=== PATIENT | female | born 1990 | race Caucasian/White ===

== ENCOUNTER 2025-05-15 14:49 | Observation (INO) ==
--- NOTE | 2025-05-15 15:43 | Emergency Department Note ---
Impression & Plan Chest pain, Elevated troponin, Intractable migraine ED Provider Note CHIEF COMPLAINT: Neck pain, migraine HISTORY OF PRESENTING ILLNESS: The patient is a pleasant 34-year-old female who arrives to the emergency department for evaluation of persistent migraine headache, with left-sided neck pain. Patient has had photophobia as well as phonophobia. She states past medical history of severe concussions, persistent migraines. States she is having severe neck stiffness, difficulty performing range of motion. She notes she has had no relief of her symptoms in the last 4 days, with [id number] Tylenol. She also states she has been having some left upper anterior chest pain, with some shortness of breath on exertion. She reports no previous cardiac history. REVIEW OF SYSTEMS: See HPI for pertinent positives and pertinent negatives. ALLERGIES: See below MEDICATIONS: See below PAST MEDICAL HISTORY: See below PHYSICAL EXAM: VITALS: Vitals are noted on the nurse's note and reviewed by myself. Vital signs stable. GENERAL: 34-year-old female, in no acute distress, nondiaphoretic, well- developed well-nourished. SKIN: The skin was without rashes, erythema, edema, or bruising. HEAD: Normocephalic atraumatic. EARS: External auditory canals clear, tympanic membranes pearly leslie without erythema or effusion bilaterally. EYES: Pupils equal round and reactive to light and accommodation. Conjunctivae without injection, sclerae without icterus. Extraocular movements intact. No nystagmus present. NOSE: Patent, turbinates without inflammation or discharge. No sinus tenderness. MOUTH: Mucous membranes moist. Tonsils are not enlarged. Pharynx without erythema or exudate. Uvula midline. Airway patent. Tongue does not deviate. NECK: Supple without nuchal rigidity. Cervical spine is nontender, no lymphadenopathy. Left cervical paraspinous region, tender to palpation, palpable spasm present. Negative Kernig's and Brudzinski's. HEART: Tachycardia with regular rhythm without murmurs gallops or rubs. LUNGS: Clear to auscultation bilaterally without wheezes, rales or rhonchi. No retractions or accessory muscle use. ABDOMEN: Positive bowel sounds x 4. Soft, nontender, without masses or organomegaly. Fitzpatrick sign negative. No guarding or rebound tenderness. MUSCULOSKELETAL: No muscle atrophy, erythema, or edema noted. Normal gait. Strength 5/5 throughout. NEURO: Patient was alert and oriented to person place and time. No focal neurological deficits. DIFFERENTIAL DIAGNOSIS: Migraine headache, meningitis, sinusitis, CO exposure, ICH, SAH, infection, tumor, headache, sinus thrombosis, arterial dissection, as well as other pathologies. ED COURSE AND MEDICAL DECISION MAKING: HISTORY FROM INDEPENDENT HISTORIAN: Mother at bedside serving as secondary historian. MEDICATIONS GIVEN: Compazine, 5 mg, ketorolac 15 mg, NSS bolus, 1 L, dexamethasone 10 mg IV, diphenhydramine 25 mg IV, topical Lidoderm, diazepam 1 mg IV, methocarbamol 500 mg p.o. MONITOR: Continuous deputy attorney general: Order was placed for continuous deputy attorney general. Patient was placed on the deputy attorney general and continuous pulse ox. Patient was noted to be in normal sinus rhythm at an initial rate of 139 bpm per my interpretation. EKG: EKG was interpreted by myself as sinus tachycardia at a rate of 121 bpm, no ST elevation or depression. No previous for comparison.. INTERPRETATION OF LABS: I interpreted the labs with full lab results as below in the lab section of this note. Pertinent lab results discussed in the MDM section below. INTERPRETATION OF IMAGING: Imaging studies were interpreted by myself and read by radiology as per the imaging section of this note. MDM SUMMARY: The patient is a pleasant, 34-year-old female who arrives to the emergency department for evaluation of the above-stated complaint. A saline lock was established, cardiac workup was obtained, as well as D-dimer, ESR, and CRP. Lab work shows no leukocytosis, no anemia. CMP shows elevated AST, ALT, likely due to patient's Tylenol intake. ESR 58, CRP 13.35. Troponin 25.5, with repeat at 2 hours 27.8. D-dimer 1110. Patient was provided migraine cocktail, with minimal improvement in symptoms. CT imaging of the head, as well as CT angio of the head and neck with CT angio of the chest to rule out PE was obtained. Imaging shows per my interpretation no acute intracranial abnormality, vascular studies are negative, PE study negative as well. Chest x- ray imaging shows no acute cardiopulmonary process per my interpretation. The patient will require further workup, and imaging due to abnormal lab values, as well as persistent migraine, with no significant improvement in symptoms with migraine cocktail. I spoke with Dr. Rios from the hospitalist group, who agreed to evaluate and admit the patient under his care. Please refer to his documentation for further patient workup and treatment. DIAGNOSIS: Chest pain, elevated troponin, intractable migraine The chart was completed utilizing [employer] Speech voice recognition software. Grammatical errors, random word insertions, pronoun errors, and incomplete sentences are an occasional consequence of this system due to software limitations, ambient noise, and hardware issues. Any formal questions or concerns about the content, text, or information contained within the body of this dictation should be directly addressed to the provider for clarification. 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 Esophageal reflux (05/01/13) Neck pain History of concussion Medical History Chronic rhinitis (05/01/13) Appendicitis Dysthymia Concussion Surgical History H/O toe surgery S/P appendectomy Family History Other Family history non-contributory Social History Smoking Status: Never smoker Second Hand Exposure: No; Do You Dip or Chew Tobacco: No; Hx Alcohol Use: No Hx Substance Use: No Preferred Language: Mongolian Communication Ability: Effective Swimming Pool Service Technician Required: No Beliefs That Will Affect Care: None Current Living Situation: Parent Feels Safe at Home: Yes Assistive Devices: Glasses Allergies Allergies Allergy/AdvReac Type Severity Reaction Status Date / Time Penicillins Allergy Mild Unknown Verified 04/07/25 08:50 Sulfa (Sulfonamide Allergy Unknown Hives Verified 04/07/25 08:50 Antibiotics) atogepant [From Qulipta] AdvReac Intermediate Verified 04/07/25 08:50 metoprolol AdvReac side Verified 04/07/25 08:50 effects Home Meds Home Medications Medication Instructions Recorded Confirmed magnesium 250 mg tablet 250 mg PO DAILY 04/07/25 04/07/25 Previous Rx's Medication Instructions Recorded riboflavin (vitamin B2) 400 mg 400 mg PO DAILY #30 tabs 02/26/22 tablet Nerivio Digital Alvaro (migraine) #1 ea 04/14/24 (digital therapeutic,NAHID device) rimegepant 75 mg disintegrating 75 mg PO Q OTHER DAY migraine 11/29/24 tablet (Nurtec ODT) headache #16 tabs rizatriptan 10 mg tablet See Rx Instructions PO .COMPLEX #9 11/29/24 tabs L norgest/E estradiol-E estrad See Rx Instructions PO .COMPLEX 03/24/25 0.15 mg-30 mcg (84)/10 mcg(7) #182 ea tabs,3mos venlafaxine 37.5 mg 37.5 mg PO DAILY #30 caps 04/07/25 capsule,extended release 24 hr diclofenac sodium 75 mg 75 mg PO BID PRN pain #20 tabs 05/16/25 tablet,delayed release methocarbamol 500 mg tablet 500 mg PO TID PRN muscle 05/16/25 spasticity #20 tabs Results & Data (ED) Vital Signs Vital Signs - 24 hr 05/15/25 14:52 05/15/25 15:11 05/15/25 17:00 Temperature 36.6 C Temperature Source Temporal Artery Scan Pulse Rate 139 H Pulse Rate [Left Finger] 116 H 102 H Pulse Rhythm [Left Finger] Respiratory Rate 18 20 20 Respiratory Effort / Characteristics Non-Labored Spontaneous Respiratory Depth Normal Respiratory Pattern Regular Blood Pressure 132/77 Blood Pressure [Left Arm] 126/75 110/82 Blood Pressure Mean 95 Blood Pressure Mean [Left Arm] 92 91 Blood Pressure Position [Left Arm] Pulse Oximetry 99 99 99 Oxygen Delivery Method Room Air Sepsis Recent Fever Within 48 Hours No Sepsis New/Unexplained Change in Mental Status N/A Sepsis Action Taken by Nursing No Action Required 05/15/25 17:40 05/15/25 18:30 05/15/25 20:00 Temperature Temperature Source Pulse Rate 104 H Pulse Rate [Left Finger] 108 H 99 H Pulse Rhythm [Left Finger] Regular Respiratory Rate 14 18 Respiratory Effort / Characteristics Respiratory Depth Respiratory Pattern Blood Pressure Blood Pressure [Left Arm] 111/77 118/83 Blood Pressure Mean Blood Pressure Mean [Left Arm] 88 94 Blood Pressure Position [Left Arm] Sitting Pulse Oximetry 98 99 Oxygen Delivery Method Room Air Sepsis Recent Fever Within 48 Hours Sepsis New/Unexplained Change in Mental Status Sepsis Action Taken by Nursing 05/15/25 21:27 05/15/25 21:47 Temperature Temperature Source Pulse Rate 99 H Pulse Rate [Left Finger] 105 H Pulse Rhythm [Left Finger] Respiratory Rate 16 Respiratory Effort / Characteristics Respiratory Depth Normal Respiratory Pattern Blood Pressure Blood Pressure [Left Arm] 111/75 Blood Pressure Mean Blood Pressure Mean [Left Arm] 87 Blood Pressure Position [Left Arm] Pulse Oximetry 97 Oxygen Delivery Method Room Air Sepsis Recent Fever Within 48 Hours Sepsis New/Unexplained Change in Mental Status Sepsis Action Taken by Half-Way Medications Current Medication List: was personally reviewed by me Laboratory Data Attestation: I reviewed the patient's lab results. 05/16/25 05:30 05/15/25 16:03 Lab Results 05/15/25 05/15/25 05/15/25 Range/Units 16:03 16:22 18:26 WBC 9.39 (4.8-10.8) K/ul RBC 4.96 (4.20-5.40) M/uL Hgb 14.3 (12.0-16.0) g/dl Hct 42.3 (37.0-47.0) % MCV 85.3 (80.0-100.0) fL MCH 28.8 (25.0-34.0) pg MCHC 33.8 (32.0-36.0) g/dL RDW Std Deviation 40.8 (36.4-46.3) fL RDW Coeff of [place] 13.1 (11.5-14.5) % Plt Count 252 (130-400) K/uL MPV 10.0 (9.4-12.4) fL Immature Gran % (Auto) 0.2 % Neut % (Auto) 76.5 % Lymph % (Auto) 11.0 % [place] % (Auto) 6.9 % Eos % (Auto) 4.8 % Baso % (Auto) 0.6 % Neut # (Auto) 7.18 H (1.40-6.50) K/uL Lymph # (Auto) 1.03 L (1.20-3.40) K/uL [place] # (Auto) 0.65 H (0.11-0.59) K/uL Eos # (Auto) 0.45 (0.00-0.50) K/uL Baso # (Auto) 0.06 (0.00-0.20) K/uL Immature Gran # (Auto) 0.02 (0.01-0.20) K/uL D-Dimer Cancelled 1110 H* Sodium 134 L (136-145) mmol/L Potassium 3.6 (3.5-5.1) mmol/L Chloride 101 (98-107) mmol/L Carbon Dioxide 25 (21-32) mmol/L Anion Gap 8 (3-11) BUN 6 (6-23) mg/dl Creatinine 0.99 (0.6-1.2) mg/dl Est Cr Clr Drug Dosing 77.1 ml/min eGFR 77.21 BUN/Creatinine Ratio 6.1 L (10-20) Glucose 102 H (70-99(Fasting)) mg/dl Calcium 9.2 (8.6-10.3) mg/dl Total Bilirubin 0.7 (0.2-1.0) mg/dl AST 49 H (13-39) U/L ALT 61 H (7-52) U/L Alkaline Phosphatase 75 (34-104) U/L Troponin I High Sens 25.5 H 27.8 H (0-14) pg/ml C-Reactive Protein 13.35 H (0-0.5) mg/dl Total Protein 8.2 (6.0-8.3) gm/dl Albumin 4.0 (3.4-5.0) gm/dl Globulin 4.2 H (2.5-4.0) gm/dl Albumin/Globulin Ratio 1.0 (0.9-2) Ref Lab Test Result See Scanned Report Administered Medications Discontinued Medications Acetaminophen (Acetaminophen 500 Mg Tab) 1,000 mg PO NOW STA Stop: 05/15/25 15:50 Last Admin: 05/15/25 16:44 Dose: 1,000 mg Documented By: POLINA Acetaminophen (Acetaminophen 500 Mg Tab) 1,000 mg PO Q8 PRN PRN Reason: pain/fever Stop: 06/14/25 23:35 Last Admin: 05/16/25 11:05 Dose: 1,000 mg Documented By: VGS Dexamethasone Sodium Phosphate (DexamethasonePf 10 Mg/Ml Vial) 10 mg IV NOW ONE Stop: 05/15/25 15:47 Last Admin: 05/15/25 16:38 Dose: 10 mg Documented By: POLINA Diazepam (Diazepam 5 Mg/Ml 10ml Vial) 1 mg IV NOW STA Stop: 05/15/25 15:59 Last Admin: 05/15/25 16:37 Dose: 1 mg Documented By: POLINA Diphenhydramine HCl (Diphenhydramine 50 Mg/Ml Vial) 25 mg IV NOW STA Stop: 05/15/25 15:47 Last Admin: 05/15/25 16:41 Dose: 25 mg Documented By: POLINA Gadobutrol (Gadobutrol 7.5ml Vial) 6 ml IV ONCE ONE Stop: 05/15/25 23:26 Last Admin: 05/15/25 23:25 Dose: 6 ml Documented By: RAND Prochlorperazine (Compazine) 1 mls @ 1 mls/min IV ONE ONE Stop: 05/15/25 15:47 Last Admin: 05/15/25 16:39 Dose: 1 mls/min Documented By: POLINA Sodium Chloride (Nss) 1,000 mls @ 999 mls/hr IV .Q1H1M ONE Stop: 05/15/25 16:46 Last Infusion: 05/15/25 17:45 Dose: Infused Documented By: Admin: 05/15/25 16:44 Dose: 999 mls/hr Documented By: POLINA Sodium Chloride (Nss) 1,000 mls @ 999 mls/hr IV .Q1H1M ONE Stop: 05/15/25 21:08 Last Infusion: 05/15/25 21:38 Dose: Infused Documented By: Admin: 05/15/25 20:33 Dose: 999 mls/hr Documented By: DEV Dexamethasone 10 mg/ Syringe 2.5 mls @ 1 mls/min IV Q6H GEMA Stop: 06/15/25 00:00 Last Admin: 05/16/25 12:21 Dose: 1 mls/min Documented By: Admin: 05/16/25 05:46 Dose: 1 mls/min Documented By: Admin: 05/16/25 00:30 Dose: 1 mls/min Documented By: LEON Vancomycin HCl 1,500 mg/ (Sodium Chloride) 530 mls @ 200 mls/hr IV ONE ONE Stop: 05/16/25 02:53 Last Infusion: 05/16/25 03:11 Dose: Infused Documented By: Admin: 05/16/25 00:30 Dose: 200 mls/hr Documented By: LEON Vancomycin HCl (Vancomycin Hcl) 1,000 mg in 270 mls @ 200 mls/hr IV Q12H GEMA Stop: 05/26/25 07:59 Last Infusion: 05/16/25 09:40 Dose: Infused Documented By: Admin: 05/16/25 08:19 Dose: 200 mls/hr Documented By: ANTONINO Ioversol (Optiray 320 125ml) 112 ml IV ONCE ONE Stop: 05/15/25 18:54 Last Admin: 05/15/25 18:53 Dose: 112 ml Documented By: BASSEM Ketorolac Tromethamine (Ketorolac Tromethamine 15 Mg/Ml Vial) 15 mg IV NOW ONE Stop: 05/15/25 15:47 Last Admin: 05/15/25 16:40 Dose: 15 mg Documented By: POLINA Ketorolac Tromethamine (Ketorolac Tromethamine 15 Mg/Ml Vial) 15 mg IV Q6H PRN PRN Reason: Headache Stop: 05/20/25 21:15 Last Admin: 05/16/25 17:39 Dose: 15 mg Documented By: Admin: 05/16/25 08:27 Dose: 15 mg Documented By: Admin: 05/15/25 23:49 Dose: 15 mg Documented By: LEON Lidocaine (Lidocaine 5% 1 Patch) 1 patch TD NOW STA Stop: 05/15/25 15:47 Last Admin: 05/15/25 16:43 Dose: 1 patch Documented By: POLINA Magnesium Oxide (Magnesium Oxide 400 Mg Tab) 400 mg PO DAILY GEMA Stop: 06/15/25 08:59 Last Admin: 05/16/25 08:13 Dose: 400 mg Documented By: ANTONINO Methocarbamol (Methocarbamol 500 Mg Tablet) 500 mg PO NOW STA Stop: 05/15/25 20:09 Last Admin: 05/15/25 20:32 Dose: 500 mg Documented By: DEV Miscellaneous (Remove Lidoderm Patch) 1 each N/A DAILY@2100 GEMA Stop: 06/14/25 20:59 Last Admin: 05/16/25 00:05 Dose: Not Given Documented By: [facility] Miscellaneous ((Rimegepant [Nurtec Odt] 75 Mg Tablet,Disintegrating)~Order Awaiting Action) 1 each N/A QS GEMA Stop: 06/14/25 23:44 Last Admin: 05/16/25 17:35 Dose: Not Given Documented By: Admin: 05/16/25 08:13 Dose: Not Given Documented By: Admin: 05/16/25 00:05 Dose: Not Given Documented By: [facility] Tizanidine HCl (Tizanidine Hcl 4 Mg Tablet) 4 mg PO TID PRN PRN Reason: neck pain Stop: 06/15/25 08:59 Last Admin: 05/16/25 10:56 Dose: 4 mg Documented By: [facility] Venlafaxine HCl (Venlafaxine Hcl Xr 37.5 Mg Capxr) 37.5 mg PO DAILY [facility] Stop: 06/15/25 08:59 Last Admin: 05/16/25 08:15 Dose: Not Given Documented By: [facility] Imaging Data Attestation: I personally reviewed and interpreted this imaging study as follows: Radiologist's Impression: Chest X-Ray 05/15/25 15:53 EXAM: XR chest 1V portable CLINICAL HISTORY: Chest pain TECHNIQUE: An X-ray image of the chest is obtained in AP projection. COMPARISON: No prior studies are available for comparison. FINDINGS: Pulmonary Parenchyma: Hyperinflated both lungs. Lungs are clear bilaterally. No evidence of consolidation, collapse, or focal opacities. No pulmonary nodules are identified. No evidence of pleural effusion or pleural thickening. Heart and Mediastinum: Heart size and shape are normal. No mediastinal widening or masses. No hilar or mediastinal lymphadenopathy. Bony Thorax: Bony thorax appears intact without fractures or deformities. Soft Tissues: Soft tissues overlying the chest wall are unremarkable. IMPRESSION: No acute cardiopulmonary abnormalities are identified. Electronically signed by Sriram Merida 05-15-2025 5:05 PM Chest CTA 05/15/25 18:27 CT pulmonary angiogram with IV contrast History: Migraines COMPARISON: None TECHNIQUE: CT angiography of the chest was performed without IV contrast followed by IV contrast, including 3D post processing CTA image reconstruction. Dose reduction techniques were achieved by using automatic exposure control and/or adjustment of mA and/or kV according to patient size and/or use of iterative reconstruction technique. FINDINGS: Diagnostic quality: Adequate There is no evidence for pulmonary embolism. The heart is not enlarged. There is no pericardial effusion. There are no abnormally enlarged hilar or mediastinal lymph nodes. The central tracheobronchial tree is clear. The lungs are clear. There is no pleural effusion. Limited visualized upper abdomen. No destructive osseous changes are seen. IMPRESSION: No evidence for pulmonary embolism. Electronically signed by Meliton Stone 05-15-2025 7:31 PM Head CTA 05/15/25 18:37 CT angiogram of the neck CT angiogram of the brain with contrast Provided History: Migraines Comparison: None Technique: HEAD and NECK CTA: During rapid bolus intravenous injection of nonionic contrast material, axial images were obtained using thin collimation multidetector helical technique from the base of the neck through the of vertex of the head. This CT angiogram data was reconstructed at thin intervals with mild overlap. 3D reconstructions were obtained. The axial source images, multiplanar reformations, 3D reconstructions in both maximum intensity projection display and volume rendered models were reviewed. Dose reduction techniques were achieved by using automatic exposure control and/or adjustment of mA and/or kV according to patient size and/or use of iterative reconstruction technique. Findings: Head CTA demonstrates no aneurysm or stenosis of the major intracranial arteries. Neck CTA demonstrates no stenosis of the major cervical arteries. The origins of the great vessels from the aortic arch are patent. No mass is noted within the visualized portions of the cervical soft tissues or lung apices. Impression: 1. Head CTA demonstrates no aneurysm or stenosis of the major intracranial arteries, 2. Neck CTA demonstrates no stenosis of the major cervical arteries. Electronically signed by Meliton Stone 05-15-2025 7:30 PM Neck CTA 05/15/25 18:37 CT angiogram of the neck CT angiogram of the brain with contrast Provided History: Migraines Comparison: None Technique: HEAD and NECK CTA: During rapid bolus intravenous injection of nonionic contrast material, axial images were obtained using thin collimation multidetector helical technique from the base of the neck through the of vertex of the head. This CT angiogram data was reconstructed at thin intervals with mild overlap. 3D reconstructions were obtained. The axial source images, multiplanar reformations, 3D reconstructions in both maximum intensity projection display and volume rendered models were reviewed. Dose reduction techniques were achieved by using automatic exposure control and/or adjustment of mA and/or kV according to patient size and/or use of iterative reconstruction technique. Findings: Head CTA demonstrates no aneurysm or stenosis of the major intracranial arteries. Neck CTA demonstrates no stenosis of the major cervical arteries. The origins of the great vessels from the aortic arch are patent. No mass is noted within the visualized portions of the cervical soft tissues or lung apices. Impression: 1. Head CTA demonstrates no aneurysm or stenosis of the major intracranial arteries, 2. Neck CTA demonstrates no stenosis of the major cervical arteries. Electronically signed by Meliton Stone 05-15-2025 7:[address] 05/15/25 18:48 Exam(s): CT HEAD Without Contrast EXAM: CT Head Without Intravenous Contrast CLINICAL HISTORY: Reason for exam: headache. TECHNIQUE: Axial computed tomography images of the head/brain without intravenous contrast. Automated exposure control was utilized for the study. A dose lowering technique was utilized adhering to the principles of ALARA. COMPARISON: CT head: 04/30/2013 FINDINGS: Brain: Unremarkable. No hemorrhage. No significant white matter disease. No edema. Ventricles: Unremarkable. No ventriculomegaly. Bones/joints: Unremarkable. No acute fracture. Soft tissues: Unremarkable. Sinuses: Unremarkable as visualized. No acute sinusitis. Mastoid air cells: Unremarkable as visualized. No mastoid effusion. IMPRESSION: No acute intracranial abnormality noted. . Electronically signed by: Reina Lopez MD, DABR 05/15/25 23:04 PM Discharge Plan Visit Data Chief Complaint: Neck Injury/Pain Stated Complaint: SEVERE NECK PAIN, MIGRAINE ED Provider: Evan Schneider ED Midlevel Provider: Sharon Quarles Discharge Problem: Chest pain, Elevated troponin, Intractable migraine Patient Disposition: Admitted As Inpatient Condition: Fair Discharge Instructions Interventions: ED Discharge Assessment Last Done: 05/15/25 23:18
[2025-05-15 16:21] LABS: Hematocrit (blood only) 42.3 % (37.0-47.0); Hemoglobin 14.3 g/dl (12.0-16.0); Immature Granulocytes # (auto) 0.02 K/uL (0.01-0.20); Immature Granulocytes % (auto) 0.2 %; Mean Corpuscular Hemoglobin 28.8 pg (25.0-34.0); Mean Corpuscular Volume 85.3 fL (80.0-100.0); Platelet Count 252 K/uL (130-400); RDW Standard Deviation 40.8 fL (36.4-46.3); Red Blood Count 4.96 M/uL (4.20-5.40); White Blood Count 9.39 K/ul (4.8-10.8)
[2025-05-15] MEDS: diazePAM 5 MG/ML 10ML VIAL IV STA (16:37)
[2025-05-15] MEDS: dexAMETHasone**PF** 10 MG/ML VIAL IV ONE (16:38)
[2025-05-15] MEDS: PROCHLORPERAZINE 1 ML IV ONE (16:39)
[2025-05-15] MEDS: KETOROLAC TROMETHAMINE 15 MG/ML VIAL IV ONE (16:40)
[2025-05-15] MEDS: diphenhydrAMINE 50 MG/ML VIAL IV STA (16:41)
[2025-05-15 16:42] LABS: Alanine Aminotransferase 61.0 U/L (7-52); Albumin Globulin Ratio 1.0 (0.9-2); Alkaline Phosphatase 75.0 U/L (34-104); Anion Gap 8.0 (3-11); Bilirubin,Total 0.7 mg/dl (0.2-1.0); Blood Urea Nitrogen 6.0 mg/dl (6-23); Calcium 9.2 mg/dl (8.6-10.3); Carbon Dioxide 25.0 mmol/L (21-32); Chloride 101.0 mmol/L (98-107); Creatinine Clr Calc Pharmacy 77.1 ml/min; Globulin 4.2 gm/dl (2.5-4.0); Glucose 102.0 mg/dl (70-99(Fasting)); Potassium 3.6 mmol/L (3.5-5.1); Sodium 134.0 mmol/L (136-145); Total Protein 8.2 gm/dl (6.0-8.3)
[2025-05-15] MEDS: LIDOCAINE 5% 1 PATCH TD STA (16:43)
[2025-05-15] MEDS: ACETAMINOPHEN 500 MG TAB PO STA (16:44)
[2025-05-15] MEDS: SODIUM CHLORIDE 0.9% 1,000 ML IV ONE ×2 (16:44→20:33)
--- NOTE | 2025-05-15 17:07 | XRay Report ---
EXAM: XR chest 1V portable CLINICAL HISTORY: Chest pain TECHNIQUE: An X-ray image of the chest is obtained in AP projection. COMPARISON: No prior studies are available for comparison. FINDINGS: Pulmonary Parenchyma: Hyperinflated both lungs. Lungs are clear bilaterally. No evidence of consolidation, collapse, or focal opacities. No pulmonary nodules are identified. No evidence of pleural effusion or pleural thickening. Heart and Mediastinum: Heart size and shape are normal. No mediastinal widening or masses. No hilar or mediastinal lymphadenopathy. Bony Thorax: Bony thorax appears intact without fractures or deformities. Soft Tissues: Soft tissues overlying the chest wall are unremarkable. IMPRESSION: No acute cardiopulmonary abnormalities are identified. Electronically signed by Sriram Merida 05-15-2025 5:05 PM
[2025-05-15] MEDS: OPTIRAY 320 125ml IV ONE (18:53)
--- NOTE | 2025-05-15 19:31 | CT Scan Report ---
CT angiogram of the neck CT angiogram of the brain with contrast Provided History: Migraines Comparison: None Technique: HEAD and NECK CTA: During rapid bolus intravenous injection of nonionic contrast material, axial images were obtained using thin collimation multidetector helical technique from the base of the neck through the of vertex of the head. This CT angiogram data was reconstructed at thin intervals with mild overlap. 3D reconstructions were obtained. The axial source images, multiplanar reformations, 3D reconstructions in both maximum intensity projection display and volume rendered models were reviewed. Dose reduction techniques were achieved by using automatic exposure control and/or adjustment of mA and/or kV according to patient size and/or use of iterative reconstruction technique. Findings: Head CTA demonstrates no aneurysm or stenosis of the major intracranial arteries. Neck CTA demonstrates no stenosis of the major cervical arteries. The origins of the great vessels from the aortic arch are patent. No mass is noted within the visualized portions of the cervical soft tissues or lung apices. Impression: 1. Head CTA demonstrates no aneurysm or stenosis of the major intracranial arteries, 2. Neck CTA demonstrates no stenosis of the major cervical arteries. Electronically signed by Meliton Stone 05-15-2025 7:30 PM
--- NOTE | 2025-05-15 19:32 | CT Scan Report ---
CT pulmonary angiogram with IV contrast History: Migraines COMPARISON: None TECHNIQUE: CT angiography of the chest was performed without IV contrast followed by IV contrast, including 3D post processing CTA image reconstruction. Dose reduction techniques were achieved by using automatic exposure control and/or adjustment of mA and/or kV according to patient size and/or use of iterative reconstruction technique. FINDINGS: Diagnostic quality: Adequate There is no evidence for pulmonary embolism. The heart is not enlarged. There is no pericardial effusion. There are no abnormally enlarged hilar or mediastinal lymph nodes. The central tracheobronchial tree is clear. The lungs are clear. There is no pleural effusion. Limited visualized upper abdomen. No destructive osseous changes are seen. IMPRESSION: No evidence for pulmonary embolism. Electronically signed by Meliton Stone 05-15-2025 7:31 PM
[2025-05-15] MEDS: METHOCARBAMOL 500 MG TABLET PO STA (20:32)
--- NOTE | 2025-05-15 20:55 | History & Physical Report ---
Date of Service May 15, 2025 Assessment & Plan (1) Intractable migraine with aura with status migrainosus: Plan: -as evidenced by photophobia 4 days of symptoms -follows with [facility] neurolog[facility] for chronic migraines 2/2 concussions -differential must be broadened due to neck stiffness, change in headache caliber -differential includes post traumatic migraine (most likely), cervicogenic headache, occipital neuralgia (given manipulation), subarachnoid hemorrhage (less likely given head imaging), vertebral artery dissection (less likely given imaging), meningitis (neck stiffness, but no fevers, but lab elevations concerning), autoimmune process Plan: -check ESR/CRP/procalcitonin -check MR brain given change in headache caliber -[facility] consult, appreciate recs (consult placed) -if ESR/CRP/procal is elevated, will give empiric abx/steroids for meningitis -tizanidine prn for neck spasms, tylenol/toradol for headaches -check viral panel -may/could consider autoimmune panel given workup above -continue venlafaxine, rimegepant, magnesium, riboflavin for headache prophylaxis (2) Elevated troponin: Plan: -with elevated D-dimer -CTA chest unremarkable -differential is broad, but given age unusual finding, considerations include infection, autoimmune process, myocarditis/pericarditis, type 2 [place] from migraine Plan: -trend troponins -echo in AM -see above (3) Transaminitis: Plan: -unclear etiology, does not drink, BMI 20 -could be 2/2 infection, medication overuse, hepatitis, IZQUIERDO, autoimmune process Plan: -check hepatitis/HIV labs -recheck in AM, may need US liver outpatient (4) Nontraumatic neck pain: Plan: -see above (5) History of concussion: Plan: -see above (6) Post concussive syndrome: Plan: -see above Plan I spent a total of 70 minutes in direct patient care, including [id number] time with the patient and/or family, reviewing medical records, ordering and reviewing diagnostic tests, and coordinating care with other healthcare providers. This time includes: history taking, physical examination, medical decision making, counseling, ECG interpretation, imaging interpretation, lab interpretation, orders, and education, excluding time spent in the performance of separately billed services. History of Present Illness Chief Complaint: -intractable migraine Primary Care Provider: Genny Vick DO 34 yo female with pmhx of intractable migraines 2/2 5 concussions, allergic rhinitis who presents for intractable headache x3 days. No recent admissions to the hospital. In the ED, given migraine cocktail with improvement in symptoms, elevated D- dimer and troponins/transaminases, CTA PE unremarkable, head imaging unremarkable, admitted to medicine under observation for further workup. Patient seen and examined at bedside. Mother present as well. Patient has had symptoms since , a few hours after manipulation of her neck by PT. [place] this migraine feels different than her normal migraines, symptoms have been worsening since steadily. Photophobia, global headache noted. Neck stiffness is also noted, worse on left side than right. States she also has been having some substernal chest pain worse with swallowing. Some SOB with it as well. Some nausea, no vomiting. No fevers or other symptoms. 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 No tobacco use, no alcohol use, no drug use. Allergies Allergy/AdvReac Type Severity Reaction Status Date / Time Penicillins Allergy Mild Unknown Verified 04/07/25 08:50 Sulfa (Sulfonamide Allergy Unknown Hives Verified 04/07/25 08:50 Antibiotics) atogepant [From Qulipta] AdvReac Intermediate Verified 04/07/25 08:50 metoprolol AdvReac side Verified 04/07/25 08:50 effects Home Medications Medication Instructions Recorded Confirmed Type riboflavin (vitamin B2) 400 mg 400 mg PO DAILY #30 tabs 02/26/22 04/07/25 Rx tablet Nerivio Digital Alvaro (migraine) #1 ea 04/14/24 04/07/25 Rx (digital therapeutic,NAHID device) rimegepant 75 mg disintegrating 75 mg PO Q OTHER DAY migraine 11/29/24 04/07/25 Rx tablet (Nurtec ODT) headache #16 tabs rizatriptan 10 mg tablet See Rx Instructions PO .COMPLEX #9 11/29/24 04/07/25 Rx tabs L norgest/E estradiol-E estrad See Rx Instructions PO .COMPLEX 03/24/25 04/07/25 Rx 0.15 mg-30 mcg (84)/10 mcg(7) #182 ea tabs,3mos magnesium 250 mg tablet 250 mg PO DAILY 04/07/25 04/07/25 History venlafaxine 37.5 mg 37.5 mg PO DAILY #30 caps 04/07/25 04/07/25 Rx capsule,extended release 24 hr Past Med/Surg History Problem List (Updated 05/15/25 @ 21:17 by Pola Rios MD) Transaminitis Elevated troponin Nontraumatic neck pain Intractable migraine with aura with status migrainosus Migraine, chronic, without aura Chronic post-traumatic headache Cognitive impairment Vision disturbance Post concussive syndrome Condylar resorption of temporomandibular joint Malocclusion with open bite Transverse maxillary hypoplasia Vertical displacement of alveolus and teeth Esophageal reflux (05/01/13) Neck pain History of concussion Medical History Chronic rhinitis (05/01/13) Appendicitis Dysthymia Concussion Surgical History H/O toe surgery S/P appendectomy Family History Other Family history non-contributory Social History Smoking Status: Never smoker Preferred Language: Mexican Feels Safe at Home: Yes Review of Systems Review of Systems: -negative unless listed above in HPI Physical Exam Physical Exam: Gen: A&O 3 NAD, anxious appearing HEENT: NCAT, EOMI, not icteric. External ears normal. No rhinorrhea. Moist mucous membranes. Neck: limited ROM, no spasm noted on palpation Lungs: No Respiratory distress. CV: tachycardic, regular rhythm Abdomen: Soft, nondistended, No rebound tenderness. MSK: No joint swelling, no redness. Skin: No rashes, petechiae, lesions. Normal color per patient. Neuro: Normal Gait, Grossly intact. Psych: Appropriate for situation. Results & Data Results & Data Vital Signs (Past 12 Hours) Vital Signs Temp Pulse Pulse Resp BP BP Pulse Ox 05/15/25 20:00 99 H 18 118/83 99 05/15/25 18:30 108 H 14 111/77 98 05/15/25 17:40 104 H 05/15/25 17:00 102 H 20 110/82 99 05/15/25 15:11 116 H 20 126/75 99 05/15/25 14:52 36.6 C 139 H 18 132/77 99 O2 Del Method 05/15/25 20:00 Room Air 05/15/25 18:30 05/15/25 17:40 05/15/25 17:00 05/15/25 15:11 05/15/25 14:52 Room Air Laboratory Results -personally reviewed, elevated troponins and transaminases, elevated D-dimer, mild neutrophilic predominance noted Medications Administered Sodium Chloride (Nss) 1,000 mls @ 999 mls/hr IV .Q1H1M ONE Stop: 05/15/25 21:08 Last Admin: 05/15/25 20:33 Dose: 999 mls/hr Documented By: NAW Code Status & VTE Plan Code Status -full code
[2025-05-15 21:48] VITALS: RESP 16
[2025-05-15 22:56] LABS: Chlamydia pneumoniae PCR Not Detected (NotDetected); Coronavirus 229E PCR Not Detected (NotDetected); Coronavirus CoV-2 (COVID19)PCR Not Detected (NotDetected); Coronavirus HKU1 PCR Not Detected (NotDetected); Coronavirus NL63 PCR Not Detected (NotDetected); Coronavirus OC43PCR Not Detected (NotDetected); Human Metapneumovirus PCR Not Detected (NotDetected); Parainfluenza Virus 1 PCR Not Detected (NotDetected); Parainfluenza Virus 2 PCR Not Detected (NotDetected); Parainfluenza Virus 3 PCR Not Detected (NotDetected); Parainfluenza Virus 4 PCR Not Detected (NotDetected); Respiratory Syncytial VirusPCR Not Detected (NotDetected); Rhinovirus/Enterovirus PCR Not Detected (NotDetected)
--- NOTE | 2025-05-15 23:05 | CT Scan Report ---
Exam(s): CT HEAD Without Contrast EXAM: CT Head Without Intravenous Contrast CLINICAL HISTORY: Reason for exam: headache. TECHNIQUE: Axial computed tomography images of the head/brain without intravenous contrast. Automated exposure control was utilized for the study. A dose lowering technique was utilized adhering to the principles of ALARA. COMPARISON: CT head: 04/30/2013 FINDINGS: Brain: Unremarkable. No hemorrhage. No significant white matter disease. No edema. Ventricles: Unremarkable. No ventriculomegaly. Bones/joints: Unremarkable. No acute fracture. Soft tissues: Unremarkable. Sinuses: Unremarkable as visualized. No acute sinusitis. Mastoid air cells: Unremarkable as visualized. No mastoid effusion. IMPRESSION: No acute intracranial abnormality noted. . Electronically signed by: Reina Lopez MD, DABR 05/15/25 23:04 PM
[2025-05-15] MEDS: GADOBUTROL 7.5ML VIAL IV ONE (23:25)
[2025-05-15] MEDS ORDERED: ONDANSETRON INJ 2 MG/ML 2 ML VIAL IV PRN (23:36)
[2025-05-15] MEDS ORDERED: POLYETHYLENE (MIRALAX) 17 GM PACK PO PRN (23:36)
[2025-05-15] MEDS: KETOROLAC TROMETHAMINE 15 MG/ML VIAL IV PRN (23:49)
[2025-05-15] MEDS ORDERED: VANCOMYCIN CONSULT ACTIVE PRN (23:53)
[2025-05-16] MEDS: REMOVE LIDODERM PATCH SCH (00:05)
--- NOTE | 2025-05-16 00:25 | Magnetic Resonance Report ---
Exam(s): MRI HEAD W/WO Contrast IV Amt: 6cc gadavist EXAM: MR Head Without and With Intravenous Contrast CLINICAL HISTORY: Reason for exam: change in headache pattern, encephalitis picture. TECHNIQUE: Magnetic resonance images of the head/brain without and with intravenous contrast in multiple planes. CONTRAST: Patient received 6cc gadavist of IV contrast COMPARISON: CT head: 05/15/2025 FINDINGS: Brain: There is no restricted diffusion to suggest acute infarction. No T2/FLAIR signal hyperintensity or abnormal contrast enhancement is seen specifically in the temporal lobes, insular cortex, hippocampus, basal ganglia, cortical white matter or cerebellum to suggest an acute encephalitis. There is no brain abscess. FLAIR images demonstrates minimal periventricular signal hyperintensity compatible with mild benign white matter changes. Normal void signal is present within the intracranial carotid and basilar arteries. Ventricles: Unremarkable. No ventriculomegaly. Bones/joints: Unremarkable. No acute fracture. Sinuses: Unremarkable as visualized. No acute sinusitis. Mastoid air cells: Unremarkable as visualized. No mastoid effusion. Orbits: Unremarkable as visualized. IMPRESSION: No acute or enhancing intracranial pathology noted. MR findings should be interpreted in conjunction with clinical symptoms, laboratory results/CSF and serological studies. . Electronically signed by: Reina Lopez MD, RADHAR 05/16/25 00:24 AM
[2025-05-16] MEDS: dexAMETHasone 10 MG in SYRINGE 0 ML IV SCH (00:30)
[2025-05-16] MEDS: VANCOMYCIN HCL 1,500 MG in SODIUM CHLORIDE 0.9% 500 ML IV ONE (00:30)
[2025-05-16] MEDS ORDERED: REMOVE LIDODERM PATCH ONE (05:00)
[2025-05-16 06:13] LABS: Hematocrit (blood only) 36.4 % (37.0-47.0); Hemoglobin 12.6 g/dl (12.0-16.0); Mean Corpuscular Hemoglobin 29.5 pg (25.0-34.0); Mean Corpuscular Volume 85.2 fL (80.0-100.0); Platelet Count 245 K/uL (130-400); RDW Standard Deviation 40.6 fL (36.4-46.3); Red Blood Count 4.27 M/uL (4.20-5.40); White Blood Count 6.20 K/ul (4.8-10.8)
[2025-05-16 07:14] VITALS: TEMP 98.1
[2025-05-16] MEDS: VENLAFAXINE HCL XR 37.5 MG CAPXR PO SCH (08:12)
[2025-05-16] MEDS: MAGNESIUM OXIDE 400 MG TAB PO SCH (08:13)
[2025-05-16] MEDS: VANCOMYCIN HCL 1,000 MG/270 ML BAG IV SCH (08:19)
--- NOTE | 2025-05-16 09:34 | Neurology Consultation ---
Date of Consultation May 16, 2025 Assessment & Plan (1) Chronic post-traumatic headache: History of Present Illness Attending Physician: Eric Gaytan DO History of Present Illness S: pt this morning feeling much better. headache much improved. mri brain with ANSHUL normal. CTA head/neck normal. pt followed by Dr. crespo and [facility] and also our clinic for her prior hx of migraine. chart reviewed. admission HPI: 34 yo female with pmhx of intractable migraines 2/2 5 concussions, allergic rhinitis who presents for intractable headache x3 days. No recent admissions to the hospital. In the ED, given migraine cocktail with improvement in symptoms, elevated D- dimer and troponins/transaminases, CTA PE unremarkable, head imaging unremarkable, admitted to medicine under observation for further workup. Patient seen and examined at bedside. Mother present as well. Patient has had symptoms since , a few hours after manipulation of her neck by PT. States this migraine feels different than her normal migraines, symptoms have been worsening since steadily. Photophobia, global headache noted. Neck stiffness is also noted, worse on left side than right. States she also has been having some substernal chest pain worse with swallowing. Some SOB with it as well. Some nausea, no vomiting. No fevers or other symptoms. 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 No tobacco use, no alcohol use, no drug use. Allergies Allergy/AdvReac Type Severity Reaction Status Date / Time Penicillins Allergy Mild Unknown Verified 04/07/25 08:50 Sulfa (Sulfonamide Allergy Unknown Hives Verified 04/07/25 08:50 Antibiotics) atogepant [From Qulipta] AdvReac Intermediate Verified 04/07/25 08:50 metoprolol AdvReac side Verified 04/07/25 08:50 effects Home Medications Medication Instructions Recorded Confirmed Type riboflavin (vitamin B2) 400 mg 400 mg PO DAILY #30 tabs 02/26/22 04/07/25 Rx tablet Nerivio Digital Alvaro (migraine) #1 ea 04/14/24 04/07/25 Rx (digital therapeutic,NAHID device) rimegepant 75 mg disintegrating 75 mg PO Q OTHER DAY migraine 11/29/24 04/07/25 Rx tablet (Nurtec ODT) headache #16 tabs rizatriptan 10 mg tablet See Rx Instructions PO .COMPLEX #9 11/29/24 04/07/25 Rx tabs L norgest/E estradiol-E estrad See Rx Instructions PO .COMPLEX 03/24/25 04/07/25 Rx 0.15 mg-30 mcg (84)/10 mcg(7) #182 ea tabs,3mos magnesium 250 mg tablet 250 mg PO DAILY 04/07/25 04/07/25 History venlafaxine 37.5 mg 37.5 mg PO DAILY #30 caps 04/07/25 04/07/25 Rx capsule,extended release 24 hr Patient History Medical History Chronic rhinitis (05/01/13) Appendicitis Dysthymia Concussion Surgical History H/O toe surgery S/P appendectomy Family History Other Family history non-contributory Social History Smoking Status: Never smoker Second Hand Exposure: No; Do You Dip or Chew Tobacco: No; Tobacco Cessation Education Requested by Patient: No Hx Alcohol Use: No Hx Substance Use: No Preferred Language: Macedonian Communication Ability: Effective Mathematics Department Chair Required: No Beliefs That Will Affect Care: None Current Living Situation: Parent Other Information That Helps Us Care for You: No Feels Safe at Home: Yes Safety Concerns: Feels Safe At This Time Assistive Devices: Glasses Exam (Neuro) Physical Exam: HEENT: normocephalic grossly Neuro: Mental: AOx4, fluent speech, normal comprehension, CN: PERRL, Full EOM, symmetric face, midline T/U/P, grossly full ROM neck with not much of nuchal rigidity (mostly neck muscle tension). Motor: No abnormal movements, normal tone, 5/5 t/o bilaterally Sens: intact to touch b/l grossly Coord: intact FNT b/l DTR: 2+ sym b/l UE Impression: 34 yo female with prior hx of chronic post traumatic headache with overall impression suggestive of MSK symptom from neck triggering her headache flare up. I do not feel she has BAGGAGE SMASHER infection or meningitis. Pt clinically doing very well and MRI negative. Recommendations: I do not feel she needs LP (pt agrees). continue current headache meds as now. she is now followed by [facility] neurologist, recommend continue f/u with them. no new recommendations at this point. avoid excessive neck stimulation/stress. will sign off, call again if new question. Chart reviewed I have spent more than 50% educating patient about potential diagnosis and neurological evaluation and coordinating care with patient's treatment team. Total time spent (including chart review and coordination of care): 45 min (this includes chart review). Results & Data Vital Signs (Past 12 Hours) Vital Signs Temp Pulse Resp BP Pulse Ox O2 Del Method 05/16/25 07:11 36.7 C 106 H 16 112/65 100 Room Air 05/15/25 23:30 36.9 C 104 H 16 120/78 99 Room Air 05/15/25 21:47 105 H 16 111/75 97 Room Air PG Care Time/CCT Total # of Minutes Spent Total Time Spent with Patient: Total time spent is greater than 50% in coordination of care (as documented) at patient's floor/unit and/or counseling patient: Coding Level of Care Code 14614 IN/OBS CONSULT LVL 3,45M Diagnoses Chronic post-traumatic headache G44.329
[2025-05-16] MEDS: ACETAMINOPHEN 500 MG TAB PO PRN (11:05)
[2025-05-16 11:38] LABS: Hep B Core Total Antibody Negative (Negative)
[2025-05-16 11:39] LABS: Hep B Surface Ag with confirm Negative (Negative)
[2025-05-16 11:45] LABS: Hep C Ab Rflx HepCQuant RNA Negative (Negative)
--- NOTE | 2025-05-16 11:49 | Discharge Summary ---
Discharge Summary Date of Service May 16, 2025 Principal Dx & Hospital Course #1 = Principal Diagnosis (1) Chronic post-traumatic headache: (2) Somatic dysfunction of cervical region: (3) Transaminitis: (4) Elevated troponin: (5) Post concussive syndrome: Plan Patient 34-year-old female with chronic headaches secondary to multiple concussions in the past presents to the emergency room with exacerbation of her headaches and significant neck pain. Evaluation in the emergency room showed some very minimally elevated liver enzymes and troponin. This led to a more extensive workup including CTs of the head and neck. Also had CTA of the chest due to elevated D-dimer. All of these were unremarkable for acute findings. Patient was admitted to the hospital for concerns of possible meningitis. She is a started empirically on antibiotics. MRI of the brain was performed that showed no acute findings. Patient was evaluated by neurology. They reviewed all the data. Their evaluation that she did not have acute meningitis is this exacerbation of her chronic musculoskeletal pain and chronic headache syndrome. Patient gives a classic history that she went underwent some extensive and intense physical therapy the other day. She then went home and did a fair amount of manual labor she said she watered all of her outside plants. This involved caring watering can and lifting watering cans to water all of her ayden nts. She states that she immediately felt increased pain in her neck after doing this activity. She has had significant improvement in her symptoms with some Toradol, steroid and muscle relaxers here in the hospital. She is feeling significantly improved that she can be discharged home to outpatient follow-up with her neurology and PCP. Notes For Next Care Provider Consider repeat LFTs in 1 to 2 weeks Follow-up hepatitis panel results Medication Changes From Visit Tizanidine for muscle relaxer Voltaren for anti-inflammatory effects Admission HPI Per Admitting Provider 34 yo female with pmhx of intractable migraines 2/2 5 concussions, allergic rhinitis who presents for intractable headache x3 days. No recent admissions to the hospital. In the ED, given migraine cocktail with improvement in symptoms, elevated D- dimer and troponins/transaminases, CTA PE unremarkable, head imaging unremarkable, admitted to medicine under observation for further workup. Patient seen and examined at bedside. Mother present as well. Patient has had symptoms since , a few hours after manipulation of her neck by PT. States this migraine feels different than her normal migraines, symptoms have been worsening since steadily. Photophobia, global headache noted. Neck stiffness is also noted, worse on left side than right. States she also has been having some substernal chest pain worse with swallowing. Some SOB with it as well. Some nausea, no vomiting. No fevers or other symptoms. 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 No tobacco use, no alcohol use, no drug use. Admission Exam Per Admitting Provider See H&P Discharge Exam Constitutional: Alert HEENT: Mucous membranes moist. Lungs: Clear to auscultation, decreased, no wheezes rales or rhonchi CV: S1-S2, regular Abdomen: Soft, nontender, nondistended Extremities: No significant edema Musculoskeletal: Range of motion in the cervical spine slightly limited with rotation, palpable muscle ropiness and bogginess of the cervical spine with trigger points being able to be palpated. Somatic dysfunction of the cervical spine and range of motion testing as well. Neuro: No focal deficits Psych: Cooperative, normal mood Updated Medication List Medication Instructions Recorded Confirmed Type riboflavin (vitamin B2) 400 mg 400 mg PO DAILY #30 tabs 02/26/22 04/07/25 Rx tablet NerivVaxxas Digital Alvaro (migraine) #1 ea 04/14/24 04/07/25 Rx (digital therapeutic,NAHID device) rimegepant 75 mg disintegrating 75 mg PO Q OTHER DAY migraine 11/29/24 04/07/25 Rx tablet (Nurtec ODT) headache #16 tabs rizatriptan 10 mg tablet See Rx Instructions PO .COMPLEX #9 11/29/24 04/07/25 Rx tabs L norgest/E estradiol-E estrad See Rx Instructions PO .COMPLEX 03/24/25 04/07/25 Rx 0.15 mg-30 mcg (84)/10 mcg(7) #182 ea tabs,3mos magnesium 250 mg tablet 250 mg PO DAILY 04/07/25 04/07/25 History venlafaxine 37.5 mg 37.5 mg PO DAILY #30 caps 04/07/25 04/07/25 Rx capsule,extended release 24 hr diclofenac sodium 75 mg 75 mg PO BID PRN pain #20 tabs 05/16/25 Rx tablet,delayed release tizanidine 4 mg tablet 4 mg PO TID PRN muscle 05/16/25 Rx spasticity/pain #15 tabs Hospital Stay Data Consultations 05/15/25 20:29 ED Decision to Admit Stat 05/15/25 21:12 Consult Neurology Routine Diagnostic Imagining Performed 05/15/25 18:27 CT angio chest PE protocol Stat 05/15/25 18:37 CT angio head w con Stat CT angio neck with con Stat 05/15/25 18:48 CT head/brain wo con Stat 05/15/25 20:33 MR brain wo/w con Urgent Reviewed imaging, laboratory and diagnostic studies. Pertinent findings as below. MRI of the brain negative for acute findings CBC within normal ranges Respiratory viral panel negative Hepatitis panel pending C-reactive protein 13.3 ESR 58 AST 49 ALT 61 Pending Results Patient Have Any Pending Studies at Discharge: Yes Discharge Instructions Given to Patient (Per Discharging Provider) Recommend ongoing evaluation and treatment for your chronic posttraumatic headaches as well as for some chronic musculoskeletal dysfunction of your cervical spine and neck Follow hepatitis panel with PCP May continue to benefit from massage and/or heat to your neck for symptom care Total Time Total Time Spent Total Time Spent (In Minutes): 37
[2025-05-16 17:37] VITALS: BP 97/65; PULSE 76; O2SAT 100
--- NOTE | 2025-05-16 22:05 | Electrocardiogram Report ---
Test Reason : Blood Pressure : */* mmHG Vent. Rate : 121 BPM Atrial Rate : 121 BPM P-R Int : 130 ms QRS Dur : 76 ms QT Int : 310 ms P-R-T Axes : 74 95 69 degrees QTcB Int : 440 ms Sinus tachycardia Possible Left atrial enlargement Rightward axis Borderline ECG No previous ECGs available Confirmed by Michael Palma ([id number]) on 05/16/2025 10:05:23 PM Referred By: REFERRED SELF Confirmed By: Michael Palma
== END 2025-05-16 18:11 | disposition home or self-care (01) ==
LOC: 3E 14:49 → ED 14:49 → SUATTDRO 20:30 → 3E 23:18